=== PATIENT | female | born 1975 | race African-American/Black ===

== ENCOUNTER 2020-11-28 14:50 | Inpatient (IN) | payer OTHER ==
[2020-11-28] MEDS ORDERED: MAGNESIUM HYDROX 2400MG/30ML ORAL SUSPENSION 30 ML CUP PO PRN (15:27)
[2020-11-28] MEDS ORDERED: MAGNESIUM CITRATE 300 ML BOTTLE PO PRN (15:27)
[2020-11-28] MEDS ORDERED: P-EPHED 60MG/TRIPROLIDI 2.5MG TABLET PO PRN (15:27)
[2020-11-28] MEDS ORDERED: LOPERAMIDE HCL 2 MG CAPSULE PO PRN (15:27)
[2020-11-28] MEDS ORDERED: ACETAMINOPHEN 325 MG TABLET (FP) PO PRN (15:27)
[2020-11-28] MEDS ORDERED: NICOTINE POLACRILEX 4 MG GUM BUC PRN (15:27)
[2020-11-28] MEDS ORDERED: guaiFENesin 200 MG/10 ML 10 ML UNIT-DOSE CUPS PO PRN (15:27)
[2020-11-28] MEDS ORDERED: MAG HYDROX/AL HYDROX/SIMETH 30 ML UNIT-DOSE CUP PO PRN (15:27)
[2020-11-28] MEDS ORDERED: hydrOXYzine PAMOATE 25 MG CAPSULE (FP) PO PRN (15:27)
[2020-11-28] MEDS ORDERED: MENTHOL/PHENOL 1 EACH UD MM PRN (15:27)
[2020-11-28] MEDS ORDERED: ALBUTEROL SO4 HFA INHALER IH PRN (15:31)
[2020-11-28] MEDS: MELATONIN 5 MG TABLETS PO SCH (21:24)
[2020-11-28] MEDS: THIAMINE HCL 100 MG TABLET (FP) PO SCH (21:24)
[2020-11-28] MEDS: MIRTAZAPINE 15 MG TABLET (FP) PO SCH (21:25)
[2020-11-28] MEDS: BUDESONIDE/FORMETEROL FUMARATE 80/4.5 mcg INHALER IH SCH (21:26)
[2020-11-29] MEDS: BUDESONIDE/FORMETEROL FUMARATE 80/4.5 mcg INHALER IH SCH ×2 (10:35→21:17)
[2020-11-29] MEDS: PRENATAL VITAMINS W/ FOLIC ACID TABLET (FP) PO SCH (10:35)
[2020-11-29] MEDS: FERROUS SO4 325 MG TABLET (FP) PO SCH (10:36)
[2020-11-29] MEDS: NICOTINE 21 MG/24 HOURS TOPICAL PATCH TD SCH (10:36)
[2020-11-29 15:06] LABS: HIV INTERPRETATION NEGATIVE (NEGATIVE)
[2020-11-29] MEDS ORDERED: PT OWN MED DRAWER 7, Y5N ONE (19:13)
[2020-11-29] MEDS: THIAMINE HCL 100 MG TABLET (FP) PO SCH (21:16)
[2020-11-29] MEDS: MIRTAZAPINE 15 MG TABLET (FP) PO SCH (21:16)
[2020-11-29] MEDS: MELATONIN 5 MG TABLETS PO SCH (21:16)
[2020-11-30] MEDS: PRENATAL VITAMINS W/ FOLIC ACID TABLET (FP) PO SCH (11:07)
[2020-11-30] MEDS: NICOTINE 21 MG/24 HOURS TOPICAL PATCH TD SCH (11:07)
[2020-11-30] MEDS: FERROUS SO4 325 MG TABLET (FP) PO SCH (11:07)
[2020-11-30] MEDS: BUDESONIDE/FORMETEROL FUMARATE 80/4.5 mcg INHALER IH SCH ×2 (11:08→21:27)
[2020-11-30] MEDS: THIAMINE HCL 100 MG TABLET (FP) PO SCH (21:27)
[2020-11-30] MEDS: MELATONIN 5 MG TABLETS PO SCH (21:27)
[2020-11-30] MEDS: MIRTAZAPINE 15 MG TABLET (FP) PO SCH (21:27)
[2020-12-01] MEDS: IBUPROFEN 400 MG TABLET (FP) PO PRN (06:24)
[2020-12-01] MEDS: BUDESONIDE/FORMETEROL FUMARATE 80/4.5 mcg INHALER IH SCH ×2 (10:43→21:42)
[2020-12-01] MEDS: PRENATAL VITAMINS W/ FOLIC ACID TABLET (FP) PO SCH (10:43)
[2020-12-01] MEDS: NICOTINE 21 MG/24 HOURS TOPICAL PATCH TD SCH (10:43)
[2020-12-01] MEDS: FERROUS SO4 325 MG TABLET (FP) PO SCH (10:43)
[2020-12-01] MEDS: THIAMINE HCL 100 MG TABLET (FP) PO SCH (21:41)
[2020-12-01] MEDS: MIRTAZAPINE 15 MG TABLET (FP) PO SCH (21:41)
[2020-12-01] MEDS: MELATONIN 5 MG TABLETS PO SCH (21:41)
[2020-12-02 06:48] VITALS: BP 91/70; PULSE 88; TEMP 97.8
[2020-12-02] MEDS: BUDESONIDE/FORMETEROL FUMARATE 80/4.5 mcg INHALER IH SCH (10:07)
[2020-12-02] MEDS: PRENATAL VITAMINS W/ FOLIC ACID TABLET (FP) PO SCH (10:07)
[2020-12-02] MEDS: FERROUS SO4 325 MG TABLET (FP) PO SCH (10:07)
[2020-12-02] MEDS: NICOTINE 21 MG/24 HOURS TOPICAL PATCH TD SCH (10:07)
[2020-12-02] MEDS: IBUPROFEN 400 MG TABLET (FP) PO PRN (14:12)
== END 2020-12-02 15:45 | disposition left against medical advice (07) | DRG 770 ==
LOC: YASAS 14:50 → Y3W 14:51
PROVIDERS: ADMIT Allergy & Immunology; ATTEND Allergy & Immunology
PROC: HZ42ZZZ Group Counseling for Substance Abuse Treatment, Cognitive-Behavioral (ICD-10-PCS; principal; 2020-11-28)
DX: F10.20 Alcohol dependence, uncomplicated (principal); F14.20 Cocaine dependence, uncomplicated; F17.210 Nicotine dependence, cigarettes, uncomplicated; F19.280 Other psychoactive substance dependence with psychoactive substance-induced anxiety disorder; F19.282 Other psychoactive substance dependence with psychoactive substance-induced sleep disorder; F19.24 Other psychoactive substance dependence with psychoactive substance-induced mood disorder; J45.909 Unspecified asthma, uncomplicated; G47.00 Insomnia, unspecified; M54.5 Low back pain; Z91.410 Personal history of adult physical and sexual abuse
CPT/HCPCS: 36415; 87389; C9803; U0003